=== PATIENT | female | born 1990 | race Caucasian/White ===

== ENCOUNTER 2023-09-05 09:03 | Observation (INO) | payer OTHER ==
[~2023-09-05] VITALS: Ht 165.1 cm; Wt 73.5 kg
[2023-09-05] MEDS: ACETAMINOPHEN 325 MG TAB PO ONE (10:36)
== END 2023-09-05 10:50 | disposition home or self-care (01) ==
LOC: LDRP 09:03
PROVIDERS: ADMIT Obstetrics & Gynecology; ATTEND Obstetrics & Gynecology
DX: O26.892 Other specified pregnancy related conditions, second trimester (principal); R10.31 Right lower quadrant pain; M54.50 Low back pain, unspecified; Z3A.20 20 weeks gestation of pregnancy
CPT/HCPCS: 59025; 81002; 94760; G0378

== ENCOUNTER 2024-01-05 18:48 | Observation (INO) | payer OTHER ==
[2024-01-05] MEDS ORDERED: PREN-129 OR (21:18)
[2024-01-05 21:25] LABS: Basophils # (auto) 0 10 ^3/uL (0-0.2); Basophils % (auto) 0.5 % (0.0-2.0); Eosinophils # (auto) 0.1 10 ^3/uL (0-0.8); Eosinophils % (auto) 1.6 % (0.0-7.0); Hematocrit 36.6 % (36.0-46.0); Hemoglobin 12.7 g/dL (12.2-16.2); Lymphocytes # (auto) 1.9 10 ^3/uL (0.4-5.4); Lymphocytes % (auto) 22.8 % (10.0-50.0); Mean Corpuscular Hemoglobin 31.1 pg (28.0-32.0); Mean Corpuscular Hgb Conc. 34.7 g/dL (32.0-36.0); Mean Corpuscular Volume 89.6 fL (80.0-100.0); Monocytes # (auto) 0.5 10 ^3/uL (0-1.3); Monocytes % (auto) 6.5 % (0.0-12.0); Neutrophils # (auto) 5.8 10 ^3/uL (1.6-8.6); Neutrophils % (auto) 68.6 % (37.0-80.0); Nucleated Red Blood Cells % 0.2 %; Platelet Count (auto) 165 10^3/uL (140-450); Red Blood Cells 4.09 10^6/uL (4.0-5.20); Red Cell Distribution Width 14.6 % (11.8-14.3); White Blood Cell 8.4 10^3/uL (4.4-10.8)
[2024-01-05 21:37] LABS: INR 0.94 (0.9-1.15); Partial Thromboplastin Time 25.8 SEC (24.5-34.5)
[2024-01-05 21:38] LABS: Alanine Aminotransferase 17 U/L (7-40); Albumin 3.5 g/dL (3.2-4.8); Alkaline Phosphatase 100 U/L (46-116); Anion Gap 5 (5-15); Aspartate Aminotransferase 14 U/L (13-40); BUN/Creatinine Ratio 11.5 (10.0-20.0); Bilirubin, Total 0.3 mg/dL (0.2-1.0); Blood Urea Nitrogen 6 mg/dL (9-23); Calcium 9.2 mg/dL (8.7-10.4); Carbon Dioxide 23 mmol/L (20-30); Chloride 109 mmol/L (98-107); Glucose 84 mg/dL (74-106); Potassium 3.4 mmol/L (3.5-5.1); Sodium 137 mmol/L (136-145); Total Protein 5.7 g/dL (5.7-8.2)
[2024-01-07 07:07] LABS: Rubella Antibodies, IgG 3.79 index (Immune >0.99)
[2024-01-07 08:06] LABS: RPR Non Reactive (Non Reactive)
== END 2024-01-05 21:29 | disposition home or self-care (01) ==
LOC: LDRP 18:48
PROVIDERS: ADMIT Obstetrics & Gynecology; ATTEND Obstetrics & Gynecology
DX: O47.9 False labor, unspecified (principal); Z3A.37 37 weeks gestation of pregnancy; Z98.890 Other specified postprocedural states; Z79.899 Other long term (current) drug therapy
CPT/HCPCS: 36415; 59025; 76818; 80053; 81002; 83036; 85025; 85610; 85730; 86592; 86703; 86762; 86803; 86850; 86900; 86901; 87340; 96360; 96361; G0378

== ENCOUNTER 2024-01-21 19:02 | Observation (INO) | payer OTHER ==
[~2024-01-21 19:02] MED LIST: PREN-129 OR
== END 2024-01-21 21:42 | disposition home or self-care (01) ==
LOC: LDRP 19:02
PROVIDERS: ADMIT Obstetrics & Gynecology; ATTEND Obstetrics & Gynecology
DX: O48.0 Post-term pregnancy (principal); O26.893 Other specified pregnancy related conditions, third trimester; N89.8 Other specified noninflammatory disorders of vagina; O62.9 Abnormality of forces of labor, unspecified; Z3A.40 40 weeks gestation of pregnancy; Z91.040 Latex allergy status; Z79.899 Other long term (current) drug therapy
CPT/HCPCS: 59025; 81002; G0378

== ENCOUNTER 2024-01-22 06:14 | Inpatient (IN) | payer OTHER ==
[~2024-01-22] VITALS: Ht 165.1 cm; Wt 68.0 kg
[2024-01-22] MEDS ORDERED: ACETAMINOPHEN 325 MG TAB PO PRN (07:15)
[2024-01-22] MEDS ORDERED: LIDOCAINE 2%HCL (LOCAL ANESTH.) INJ 20ML MDV IJ PRN (07:15)
[2024-01-22 07:39] LABS: Basophils # (auto) 0.1 10 ^3/uL (0-0.2); Basophils % (auto) 0.4 % (0.0-2.0); Eosinophils # (auto) 0 10 ^3/uL (0-0.8); Hematocrit 42.5 % (36.0-46.0); Hemoglobin 14.4 g/dL (12.2-16.2); Lymphocytes # (auto) 0.6 10 ^3/uL (0.4-5.4); Lymphocytes % (auto) 3.9 % (10.0-50.0); Mean Corpuscular Hemoglobin 30.5 pg (28.0-32.0); Mean Corpuscular Hgb Conc. 33.8 g/dL (32.0-36.0); Mean Corpuscular Volume 90.1 fL (80.0-100.0); Monocytes # (auto) 0.4 10 ^3/uL (0-1.3); Monocytes % (auto) 2.6 % (0.0-12.0); Neutrophils # (auto) 14.7 10 ^3/uL (1.6-8.6); Neutrophils % (auto) 93.1 % (37.0-80.0); Platelet Count (auto) 151 10^3/uL (140-450); Red Blood Cells 4.72 10^6/uL (4.0-5.20); Red Cell Distribution Width 14.5 % (11.8-14.3); White Blood Cell 15.8 10^3/uL (4.4-10.8)
[2024-01-22 07:54] LABS: INR 0.97 (0.9-1.15); Partial Thromboplastin Time 28.6 SEC (24.5-34.5); Prothrombin Time 10.3 sec (9.3-11.8)
[2024-01-22 08:04] LABS: Alanine Aminotransferase 15 U/L (7-40); Albumin 3.7 g/dL (3.2-4.8); Alkaline Phosphatase 125 U/L (46-116); Anion Gap 9 (5-15); Aspartate Aminotransferase 10 U/L (13-40); BUN/Creatinine Ratio 9.1 (10.0-20.0); Blood Urea Nitrogen 5 mg/dL (9-23); Calcium 9.1 mg/dL (8.7-10.4); Carbon Dioxide 20 mmol/L (20-31); Chloride 108 mmol/L (98-107); Glucose 124 mg/dL (74-106); Potassium 3.9 mmol/L (3.5-5.1); Sodium 137 mmol/L (136-145)
[2024-01-22 08:05] LABS: Bilirubin, Total 0.5 mg/dL (0.2-1.0); Total Protein 6.4 g/dL (5.7-8.2)
[2024-01-22] MEDS: LACT. RINGERS/OXYTOCIN 20UNITS 500 ML IV ONE ×2 (09:01)
[2024-01-22 10:10] LABS: Urine Bacteria None Seen /hpf (None Seen)
[2024-01-22 10:41] VITALS: BP 120/59; PULSE 91; RESP 18; TEMP 98.6; O2SAT 95
[2024-01-22 10:48] LABS: Amphetamine Screen, Urine Neg (NEGATIVE); Benzodiazephine Screen, Urine Neg (NEGATIVE)
[2024-01-22 10:49] LABS: Barbiturate Scree,Urine Neg (NEGATIVE)
[2024-01-22 10:50] LABS: Cannabinoid Screen, Urine Neg (NEGATIVE); Cocaine Screen, Urine Neg (NEGATIVE); Opiate Scree,Urine Neg (NEGATIVE); Phencyclidine Screen, Urine Neg (NEGATIVE)
[2024-01-22] MEDS: IBUPROFEN 600 MG TAB PO PRN (10:59)
[2024-01-22 11:03] LABS: Urine Blood 3+ /uL (Negative); Urine Clarity Ex.Turbid (Clear); Urine Color Light-Red (Yellow); Urine Protein, UAD 1+ (Negative); Urine Specific Gravity 1.013 (1.001-1.035); Urine Urobilinogen Normal (Negative); Urine WBC 109 /hpf (0 - 5); Urine pH 6.5 (5.0-9.0)
[2024-01-22] MEDS: PHISODERM TOP SOLN 240ML BTL TOP PRN (11:51)
[2024-01-22] MEDS: DERMOPLAST 60ML BOTTLE TOP PRN (11:51)
[2024-01-22] MEDS: WITCH HAZEL-GLYCERIN PAD TOP PRN (11:52)
[2024-01-22 15:02] VITALS: BP 108/59; PULSE 89; RESP 18; TEMP 97.7; O2SAT 96
[2024-01-22 19:00] VITALS: BP 107/66; PULSE 76; RESP 16; TEMP 97.9; O2SAT 97
[2024-01-22] MEDS: LACTATED RINGER'S 1,000 ML IV SCH (19:50)
[2024-01-22 23:00] VITALS: BP 105/64; PULSE 73; RESP 16; TEMP 98; O2SAT 98
[2024-01-23 03:00] VITALS: BP 105/59; PULSE 78; RESP 16; TEMP 98.6; O2SAT 98
[2024-01-23 07:00] VITALS: BP 108/66; PULSE 75; RESP 18; TEMP 97.8; O2SAT 96
[2024-01-23 11:00] VITALS: BP 110/66; PULSE 84; RESP 18; TEMP 97.6; O2SAT 100
[2024-01-24 20:06] LABS: Chlamydia Trachomatis, NAA Negative (Negative); Neisseria gonorrhoeae, NAA Negative (Negative)
[2024-01-25 05:08] LABS: RPR Non Reactive (Non Reactive)
== END 2024-01-23 12:12 | disposition home or self-care (01) | DRG 560 ==
LOC: LDRP 06:14 → OBSVTOIN 06:44 → LDRP 06:45
PROVIDERS: ADMIT Obstetrics & Gynecology; ATTEND Obstetrics & Gynecology
PROC: 10E0XZZ Delivery of Products of Conception, External Approach (ICD-10-PCS; principal; 2024-01-22)
PROC: 0HQ9XZZ Repair Perineum Skin, External Approach (ICD-10-PCS; 2024-01-22)
DX: O48.0 Post-term pregnancy (principal); Z37.0 Single live birth; O69.81X0 Labor and delivery complicated by cord around neck, without compression, not applicable or unspecified; O70.0 First degree perineal laceration during delivery; Z3A.40 40 weeks gestation of pregnancy; Z88.0 Allergy status to penicillin; Z98.1 Arthrodesis status; Z91.040 Latex allergy status
CPT/HCPCS: 36415; 59409; 80053; 80307; 81001; 85025; 85610; 85730; 86592; 86803; 86850; 86900; 86901; 94760; 96360; 96365; 96366; G0378; J2590